=== PATIENT | male | born 1930 | race Caucasian/White ===

== ENCOUNTER 2018-01-21 18:58 | Inpatient (IN) | payer MEDICARE, MEDICAID, OTHER ==
[2018-01-21] MEDS: ONDANSETRON 4 MG INJ IV (19:37)
[2018-01-21] MEDS: SOD CHLORIDE 0.9% 1,000 ML IV (19:37)
[2018-01-21 19:43] LABS: ADD MAN DIFF? NO
[2018-01-21 19:45] LABS: BASOPHILS % 0.4 % (0.0-2.0); EOSINOPHILS # 0.1 10^3/ul (0.0-0.5); EOSINOPHILS % 0.8 % (0.0-7.0); HEMATOCRIT 45.5 % (42.0-52.0); HEMOGLOBIN 15.6 g/dl (14.0-18.0); LYMPHOCYTES # 2.6 10^3/ul (0.8-2.9); LYMPHOCYTES % 35.8 % (15.0-51.0); MEAN CORPUSCULAR HEMOGLOBIN 32.6 pg (29.0-33.0); MEAN CORPUSCULAR HGB CONC 34.3 g/dl (32.0-37.0); MEAN CORPUSCULAR VOLUME 95.2 fl (82.0-101.0); MEAN PLATELET VOLUME 9.8 fl (7.4-10.4); MONOCYTE # 0.7 10^3/ul (0.3-0.9); MONOCYTES % 9.6 % (0.0-11.0); NEUTROPHIL # 3.8 10^3/ul (1.6-7.5); PLATELET COUNT 161 10^3/UL (140-415); RED BLOOD COUNT 4.78 10^6/ul (4.70-6.10); RED CELL DISTRIBUTION WIDTH 14.4 % (11.5-14.5)
[2018-01-21 19:45] LABS: WHITE BLOOD COUNT 7.2 10^3/ul (4.8-10.8)
[2018-01-21 20:08] LABS: ALANINE AMINOTRANSFERASE 32 IU/L (13-69); ALBUMIN 4.1 g/dl (3.3-4.9); ALBUMIN/GLOBULIN RATIO 1.13; ALKALINE PHOSPHATASE 93 IU/L (42-121); ANION GAP 21 (8-16); ASPARTATE AMINO TRANSFERASE 27 IU/L (15-46); BILIRUBIN,INDIRECT 0.7 mg/dl (0-1.1); BILIRUBIN,TOTAL 0.7 mg/dl (0.2-1.3); BLOOD UREA NITROGEN 22 mg/dl (7-20); CALCIUM 9.1 mg/dl (8.4-10.2); CARBON DIOXIDE 28 mmol/L (21-31); CHLORIDE 96 mmol/L (97-110); CREATININE 1.39 mg/dl (0.61-1.24); GLUCOSE 88 mg/dl (70-220); LIPASE 163 U/L (23-300); SODIUM 142 mmol/L (135-144); TOTAL PROTEIN 7.7 g/dl (6.1-8.1)
[2018-01-21 20:14] LABS: POTASSIUM 2.8 mmol/L (3.5-5.1)
[2018-01-21 20:17] LABS: INR 1.09; PROTIME 14.3 Sec (11.9-14.9); PT RATIO 1.1
[2018-01-21 20:20] LABS: TROPONIN-I 0.087 ng/ml (0.00-0.12)
[2018-01-21 20:25] LABS: FREE T3 2.28 pg/ml (2.77-5.27)
[2018-01-21 20:28] LABS: ADD UMIC YES; UR ASCORBIC ACID NEGATIVE (NEGATIVE); UR BILIRUBIN (Dip) NEGATIVE (NEGATIVE); UR BLOOD (Dip) NEGATIVE (NEGATIVE); UR CLARITY SLIGHTLY CLOUDY (CLEAR); UR COLOR AMBER (YELLOW); UR GLUCOSE (Dip) NEGATIVE (NEGATIVE); UR KETONES (Dip) NEGATIVE (NEGATIVE); UR LEUKOCYTE ESTERASE (Dip) NEGATIVE Leu/ul (NEGATIVE); UR NITRITE (Dip) NEGATIVE (NEGATIVE); UR RBC 0 /HPF (0-5); UR SPECIFIC GRAVITY (Dip) 1.023 (1.003-1.030); UR TOTAL PROTEIN (Dip) 1+ mg/dl (NEGATIVE); UR UROBILINOGEN (Dip) 2+ mg/dL (NEGATIVE); UR WBC 1 /HPF (0-5)
[2018-01-21] MEDS: MAGNESIUM SULFATE 2 GM/50 ML 50 ML IVPB (20:48)
[2018-01-21 21:33] LABS: CREATINE KINASE 64 IU/L (23-200)
[2018-01-21] MEDS ORDERED: LORAZEPAM 2 MG INJ (21:53)
[2018-01-21] MEDS ORDERED: ONDANSETRON 4 MG INJ IV (22:00)
[2018-01-21] MEDS ORDERED: DOCUSATE SODIUM 100 MG CAP PO (22:00)
[2018-01-21] MEDS ORDERED: ACETAMINOPHEN 325 MG TAB PO (22:00)
[2018-01-21] MEDS ORDERED: BISACODYL (EC) 5 MG TAB PO (22:00)
[2018-01-21] MEDS ORDERED: NACL 0.9% 3 ML SYG IV (22:00)
[2018-01-21] MEDS: POTASSIUM PHOSPHATE 60 MEQ in SOD CHLORIDE 0.9% 250 ML IVPB (22:11)
[2018-01-21] MEDS: POTASSIUM CHLORIDE (SR) 20 MEQ TAB PO (22:31)
[2018-01-21] MEDS: LORAZEPAM 2 MG INJ IV (22:31)
[2018-01-22] MEDS: POTASSIUM CHLORIDE 50 ML IVPB ×8 (00:10→23:10)
[2018-01-22] MEDS: SOD CHLORIDE 0.9% 1,000 ML IV (00:43)
[2018-01-22 01:07] LABS: ANION GAP 16 (8-16); BLOOD UREA NITROGEN 19 mg/dl (7-20); CALCIUM 7.7 mg/dl (8.4-10.2); CARBON DIOXIDE 24 mmol/L (21-31); CHLORIDE 105 mmol/L (97-110); CREATININE 1.13 mg/dl (0.61-1.24); GLUCOSE 81 mg/dl (70-220); SODIUM 142 mmol/L (135-144)
[2018-01-22 01:18] LABS: MAGNESIUM 2.3 mg/dl (1.7-2.5)
[2018-01-22 06:33] LABS: ADD MAN DIFF? NO
[2018-01-22 06:43] LABS: BASOPHILS % 0.4 % (0.0-2.0); EOSINOPHILS # 0.1 10^3/ul (0.0-0.5); HEMATOCRIT 40.2 % (42.0-52.0); HEMOGLOBIN 13.3 g/dl (14.0-18.0); LYMPHOCYTES # 2.1 10^3/ul (0.8-2.9); LYMPHOCYTES % 29.4 % (15.0-51.0); MEAN CORPUSCULAR HEMOGLOBIN 32.1 pg (29.0-33.0); MEAN CORPUSCULAR HGB CONC 33.1 g/dl (32.0-37.0); MEAN CORPUSCULAR VOLUME 97.1 fl (82.0-101.0); MEAN PLATELET VOLUME 9.9 fl (7.4-10.4); MONOCYTE # 0.6 10^3/ul (0.3-0.9); MONOCYTES % 8.4 % (0.0-11.0); NEUTROPHIL # 4.3 10^3/ul (1.6-7.5); NEUTROPHILS % 60.5 % (39.0-77.0); PLATELET COUNT 141 10^3/UL (140-415); RED BLOOD COUNT 4.14 10^6/ul (4.70-6.10); RED CELL DISTRIBUTION WIDTH 14.4 % (11.5-14.5)
[2018-01-22 06:55] LABS: HEMOGLOBIN A1C 5.3 % (0-5.9)
[2018-01-22] MEDS: LEVOTHYROXINE 75 MCG TAB PO (07:00)
[2018-01-22 07:04] LABS: ALANINE AMINOTRANSFERASE 36 IU/L (13-69); ALBUMIN 3.4 g/dl (3.3-4.9); ALBUMIN/GLOBULIN RATIO 1.09; ALKALINE PHOSPHATASE 81 IU/L (42-121); ANION GAP 19 (8-16); ASPARTATE AMINO TRANSFERASE 22 IU/L (15-46); BILIRUBIN,INDIRECT 0.4 mg/dl (0-1.1); BILIRUBIN,TOTAL 0.4 mg/dl (0.2-1.3); BLOOD UREA NITROGEN 17 mg/dl (7-20); CALCIUM 7.7 mg/dl (8.4-10.2); CARBON DIOXIDE 24 mmol/L (21-31); CHLORIDE 105 mmol/L (97-110); CREATININE 1.05 mg/dl (0.61-1.24); GLUCOSE 71 mg/dl (70-220); MAGNESIUM 1.9 mg/dl (1.7-2.5); SODIUM 145 mmol/L (135-144); TOTAL PROTEIN 6.5 g/dl (6.1-8.1)
[2018-01-22 07:08] LABS: POTASSIUM 2.9 mmol/L (3.5-5.1)
[2018-01-22] MEDS: POTASSIUM CHLORIDE (SR) 20 MEQ TAB PO (07:27)
[2018-01-22] MEDS: MAGNESIUM SULFATE 1 GM/D5W 100 ML IVPB (08:27)
[2018-01-22] MEDS ORDERED: NON-FORMULARY/PATIENT OWN MED (Memantine HCl/Donepezil HCl (Namzaric 28 mg-10 mg Capsule) PO (09:00)
[2018-01-22] MEDS: ESCITALOPRAM 10 MG TAB PO (09:00)
[2018-01-22] MEDS: POTASSIUM CHLORIDE 30 MEQ in DEXTROSE 5% 1,000 ML IV (09:46)
[2018-01-22] MEDS: BRIMONIDINE 0.2% 5 ML BTL BOTH EYES ×2 (11:16→20:34)
[2018-01-22] MEDS: DORZOLAMIDE/TIMOLOL 10 ML OPH BOTH EYES ×2 (11:16→20:34)
[2018-01-22] MEDS: MEMANTINE 10 MG TAB PO (12:00)
[2018-01-22] MEDS: DONEPEZIL 10 MG TAB PO (12:00)
[2018-01-22 16:42] LABS: ANION GAP 16 (8-16); BLOOD UREA NITROGEN 12 mg/dl (7-20); CALCIUM 7.5 mg/dl (8.4-10.2); CARBON DIOXIDE 23 mmol/L (21-31); CHLORIDE 99 mmol/L (97-110); CREATININE 0.92 mg/dl (0.61-1.24); GLUCOSE 72 mg/dl (70-220); SODIUM 135 mmol/L (135-144)
[2018-01-22 16:43] LABS: MAGNESIUM 1.8 mg/dl (1.7-2.5)
[2018-01-22 16:46] LABS: POTASSIUM 2.8 mmol/L (3.5-5.1)
[2018-01-22] MEDS: DEXTROSE 5% 1,000 ML IV (16:46)
[2018-01-22] MEDS: MAGNESIUM SULFATE 2 GM/50 ML 50 ML IVPB (17:29)
[2018-01-22] MEDS: CALCIUM GLUCONATE 10% 1 GM in DEXTROSE 5% 100 ML IVPB (17:48)
[2018-01-22] MEDS: TAMSULOSIN (SR) 0.4 MG CAP PO (20:39)
[2018-01-22] MEDS: ATORVASTATIN 20 MG TAB PO (20:39)
[2018-01-23 01:40] LABS: PARTIAL THROMBOPLASTIN TIME 34.3 Sec (25.0-35.0)
[2018-01-23] MEDS: DEXTROSE 5% 1,000 ML IV (03:30)
[2018-01-23] MEDS: SOD CHLORIDE 0.45% 1,000 ML IV (06:04)
[2018-01-23] MEDS: LEVOTHYROXINE 75 MCG TAB PO (06:05)
[2018-01-23 08:00] LABS: PARTIAL THROMBOPLASTIN TIME 33.6 Sec (25.0-35.0)
[2018-01-23 08:04] LABS: ANION GAP 12 (8-16); BLOOD UREA NITROGEN 7 mg/dl (7-20); CALCIUM 7.8 mg/dl (8.4-10.2); CARBON DIOXIDE 26 mmol/L (21-31); CHLORIDE 100 mmol/L (97-110); CREATININE 0.88 mg/dl (0.61-1.24); GLUCOSE 83 mg/dl (70-220); MAGNESIUM 1.9 mg/dl (1.7-2.5); PHOSPHORUS 1.5 mg/dl (2.5-4.9); POTASSIUM 3.4 mmol/L (3.5-5.1); SODIUM 135 mmol/L (135-144)
[2018-01-23] MEDS: ALLOPURINOL 300 MG TAB PO ×2 (09:00→11:39)
[2018-01-23] MEDS: ESCITALOPRAM 10 MG TAB PO ×2 (09:00→11:39)
[2018-01-23] MEDS: DONEPEZIL 10 MG TAB PO ×2 (09:00→11:37)
[2018-01-23] MEDS: FINASTERIDE 5 MG TAB PO ×2 (09:00→11:38)
[2018-01-23] MEDS: MEMANTINE 10 MG TAB PO ×2 (09:00→11:35)
[2018-01-23] MEDS: DIPYRIDAMOLE/ASPIRIN (SR) CAP PO ×2 (09:00→11:38)
[2018-01-23] MEDS: DORZOLAMIDE/TIMOLOL 10 ML OPH BOTH EYES ×2 (09:48→20:50)
[2018-01-23] MEDS: BRIMONIDINE 0.2% 5 ML BTL BOTH EYES ×2 (09:48→20:50)
[2018-01-23] MEDS: MAGNESIUM SULFATE 4 GM/100 ML 100 ML IVPB (11:32)
[2018-01-23] MEDS: CALCIUM GLUCONATE 10% 1 GM in DEXTROSE 5% 100 ML IVPB (11:32)
[2018-01-23] MEDS: POTASSIUM CHLORIDE 100 ML IVPB ×2 (13:31→15:15)
[2018-01-23 17:33] LABS: ANION GAP 12 (8-16); BLOOD UREA NITROGEN 7 mg/dl (7-20); CARBON DIOXIDE 24 mmol/L (21-31); CHLORIDE 100 mmol/L (97-110); CREATININE 0.78 mg/dl (0.61-1.24); GLUCOSE 89 mg/dl (70-220); POTASSIUM 4.2 mmol/L (3.5-5.1); SODIUM 132 mmol/L (135-144)
[2018-01-23 18:12] LABS: PSA, FREE 1.4 ng/mL
[2018-01-23] MEDS: ATORVASTATIN 20 MG TAB PO (20:48)
[2018-01-23] MEDS: TAMSULOSIN (SR) 0.4 MG CAP PO (20:49)
[2018-01-23 21:22] LABS: MAGNESIUM 2.6 mg/dl (1.7-2.5)
[2018-01-24] MEDS: LORAZEPAM 2 MG INJ IV (00:26)
[2018-01-24] MEDS: SODIUM PHOSPHATE 30 MMOL in SOD CHLORIDE 0.9% 250 ML IVPB (00:44)
[2018-01-24] MEDS: LEVOTHYROXINE 75 MCG TAB PO (06:39)
[2018-01-24] MEDS: DONEPEZIL 10 MG TAB PO (08:15)
[2018-01-24] MEDS: ESCITALOPRAM 10 MG TAB PO (08:15)
[2018-01-24] MEDS: DORZOLAMIDE/TIMOLOL 10 ML OPH BOTH EYES ×2 (08:15→22:00)
[2018-01-24] MEDS: DIPYRIDAMOLE/ASPIRIN (SR) CAP PO (08:15)
[2018-01-24] MEDS: BRIMONIDINE 0.2% 5 ML BTL BOTH EYES ×2 (08:15→21:00)
[2018-01-24] MEDS: MEMANTINE 10 MG TAB PO (08:15)
[2018-01-24] MEDS: FINASTERIDE 5 MG TAB PO (08:15)
[2018-01-24] MEDS ORDERED: INFLUENZA VIRUS VACCINE 0.5 ML (DISPENSING) IM* (09:00)
[2018-01-24 09:05] LABS: ANION GAP 17 (8-16); BLOOD UREA NITROGEN 7 mg/dl (7-20); CALCIUM 7.8 mg/dl (8.4-10.2); CARBON DIOXIDE 22 mmol/L (21-31); CHLORIDE 101 mmol/L (97-110); GLUCOSE 78 mg/dl (70-220); MAGNESIUM 1.9 mg/dl (1.7-2.5); PHOSPHORUS 3.9 mg/dl (2.5-4.9); POTASSIUM 3.5 mmol/L (3.5-5.1); SODIUM 136 mmol/L (135-144)
[2018-01-24] MEDS: CALCIUM GLUCONATE 10% 1 GM in DEXTROSE 5% 100 ML IVPB (15:07)
[2018-01-24] MEDS: TAMSULOSIN (SR) 0.4 MG CAP PO (21:23)
[2018-01-24] MEDS: ATORVASTATIN 20 MG TAB PO (21:23)
[2018-01-25] MEDS: LEVOTHYROXINE 75 MCG TAB PO (06:56)
[2018-01-25 06:57] LABS: ANION GAP 14 (8-16); BLOOD UREA NITROGEN 7 mg/dl (7-20); CARBON DIOXIDE 27 mmol/L (21-31); CHLORIDE 100 mmol/L (97-110); CREATININE 0.95 mg/dl (0.61-1.24); GLUCOSE 81 mg/dl (70-220); MAGNESIUM 1.8 mg/dl (1.7-2.5); PHOSPHORUS 3.3 mg/dl (2.5-4.9); POTASSIUM 3.6 mmol/L (3.5-5.1); SODIUM 137 mmol/L (135-144)
[2018-01-25 09:01] LABS: ALDOSTERONE <1 ng/dL
[2018-01-25] MEDS: DIPYRIDAMOLE/ASPIRIN (SR) CAP PO (09:36)
[2018-01-25] MEDS: ALLOPURINOL 300 MG TAB PO (09:37)
[2018-01-25] MEDS: DONEPEZIL 10 MG TAB PO (09:37)
[2018-01-25] MEDS: FINASTERIDE 5 MG TAB PO (09:37)
[2018-01-25] MEDS: MEMANTINE 10 MG TAB PO (09:37)
[2018-01-25] MEDS: BRIMONIDINE 0.2% 5 ML BTL BOTH EYES ×2 (09:37→21:17)
[2018-01-25] MEDS: DORZOLAMIDE/TIMOLOL 10 ML OPH BOTH EYES ×2 (09:37→21:17)
[2018-01-25] MEDS: ESCITALOPRAM 10 MG TAB PO (09:37)
[2018-01-25] MEDS: CALCIUM GLUCONATE 10% 1 GM in DEXTROSE 5% 100 ML IVPB (16:33)
[2018-01-25] MEDS: TAMSULOSIN (SR) 0.4 MG CAP PO (21:17)
[2018-01-25] MEDS: ATORVASTATIN 20 MG TAB PO (21:17)
[2018-01-25 21:32] LABS: RENIN, PLASMA 0.37 ng/mL/h (0.25-5.82)
[2018-01-26 06:00] LABS: ADD MAN DIFF? NO
[2018-01-26 06:05] LABS: BASOPHILS % 0.3 % (0.0-2.0); EOSINOPHILS # 0.2 10^3/ul (0.0-0.5); EOSINOPHILS % 3.1 % (0.0-7.0); HEMATOCRIT 34.1 % (42.0-52.0); LYMPHOCYTES # 2.7 10^3/ul (0.8-2.9); LYMPHOCYTES % 46.6 % (15.0-51.0); MEAN CORPUSCULAR HEMOGLOBIN 32.3 pg (29.0-33.0); MEAN CORPUSCULAR HGB CONC 35.2 g/dl (32.0-37.0); MEAN CORPUSCULAR VOLUME 91.9 fl (82.0-101.0); MEAN PLATELET VOLUME 9.1 fl (7.4-10.4); MONOCYTE # 0.5 10^3/ul (0.3-0.9); MONOCYTES % 8.3 % (0.0-11.0); NEUTROPHIL # 2.4 10^3/ul (1.6-7.5); NEUTROPHILS % 41.2 % (39.0-77.0); PLATELET COUNT 129 10^3/UL (140-415); RED BLOOD COUNT 3.71 10^6/ul (4.70-6.10); RED CELL DISTRIBUTION WIDTH 13.7 % (11.5-14.5)
[2018-01-26 06:05] LABS: WHITE BLOOD COUNT 5.8 10^3/ul (4.8-10.8)
[2018-01-26] MEDS: LEVOTHYROXINE 75 MCG TAB PO (06:09)
[2018-01-26 06:43] LABS: ANION GAP 14 (8-16); BLOOD UREA NITROGEN 10 mg/dl (7-20); CALCIUM 8.3 mg/dl (8.4-10.2); CARBON DIOXIDE 25 mmol/L (21-31); CHLORIDE 100 mmol/L (97-110); GLUCOSE 76 mg/dl (70-220); MAGNESIUM 1.7 mg/dl (1.7-2.5); PHOSPHORUS 2.5 mg/dl (2.5-4.9); POTASSIUM 3.2 mmol/L (3.5-5.1); SODIUM 136 mmol/L (135-144)
[2018-01-26] MEDS: ALLOPURINOL 300 MG TAB PO (08:25)
[2018-01-26] MEDS: MEMANTINE 10 MG TAB PO (08:25)
[2018-01-26] MEDS: DIPYRIDAMOLE/ASPIRIN (SR) CAP PO (08:26)
[2018-01-26] MEDS: FINASTERIDE 5 MG TAB PO (08:26)
[2018-01-26] MEDS: ESCITALOPRAM 10 MG TAB PO (08:26)
[2018-01-26] MEDS: DONEPEZIL 10 MG TAB PO (08:26)
[2018-01-26] MEDS: DORZOLAMIDE/TIMOLOL 10 ML OPH BOTH EYES ×2 (08:27→20:50)
[2018-01-26] MEDS: BRIMONIDINE 0.2% 5 ML BTL BOTH EYES ×2 (08:27→20:49)
[2018-01-26 11:12] LABS: POTASSIUM,URINE RANDOM 9.7 mmol/L (25-125)
[2018-01-26 11:12] LABS: CREATININE,URINE RANDOM 62.55 mg/dl (20-370)
[2018-01-26] MEDS ORDERED: POTASSIUM CHLORIDE (SR) 20 MEQ TAB PO (11:50)
[2018-01-26] MEDS: POTASSIUM CHLORIDE 20 MEQ POWDER FOR ORAL SOLN PO (14:08)
[2018-01-26] MEDS: TAMSULOSIN (SR) 0.4 MG CAP PO (20:50)
[2018-01-26] MEDS: ATORVASTATIN 20 MG TAB PO (20:50)
[2018-01-27] MEDS: LEVOTHYROXINE 75 MCG TAB PO (06:34)
[2018-01-27] MEDS: DORZOLAMIDE/TIMOLOL 10 ML OPH BOTH EYES (08:45)
[2018-01-27] MEDS: BRIMONIDINE 0.2% 5 ML BTL BOTH EYES (08:45)
[2018-01-27] MEDS: DIPYRIDAMOLE/ASPIRIN (SR) CAP PO (08:46)
[2018-01-27] MEDS: MEMANTINE 10 MG TAB PO (08:46)
[2018-01-27] MEDS: ESCITALOPRAM 10 MG TAB PO (08:46)
[2018-01-27] MEDS: DONEPEZIL 10 MG TAB PO (08:47)
[2018-01-27] MEDS: FINASTERIDE 5 MG TAB PO (08:47)
[2018-01-27] MEDS: ALLOPURINOL 300 MG TAB PO (08:47)
[2018-01-27 17:21] LABS: PTH CALCIUM 7.8 mg/dL (8.6-10.3)
[2018-01-28 08:47] LABS: PTH INTACT 161 pg/mL (14-64)
== END 2018-01-27 15:45 | DRG 641 ==
LOC: TEL 01-22 21:35 → E/R 18:58 → TEL 01-22 20:44 → MS2 01-24 12:33 → TEL 20:44
PROVIDERS: Family Medicine
DX: E86.0 Dehydration (principal); G30.9 Alzheimer's disease, unspecified; R63.0 Anorexia; E83.51 Hypocalcemia; F02.80 Dementia in other diseases classified elsewhere, unspecified severity, without behavioral disturbance, psychotic disturbance, mood disturbance, and anxiety; I45.81 Long QT syndrome; E87.6 Hypokalemia; E03.9 Hypothyroidism, unspecified; F32.9 Major depressive disorder, single episode, unspecified; H40.9 Unspecified glaucoma; M10.9 Gout, unspecified; N40.0 Benign prostatic hyperplasia without lower urinary tract symptoms; R26.9 Unspecified abnormalities of gait and mobility; R62.7 Adult failure to thrive; Z68.22 Body mass index [BMI] 22.0-22.9, adult; Z91.81 History of falling; Z79.82 Long term (current) use of aspirin
CPT/HCPCS: 36415; 70450; 71045; 73030-RT; 80048; 80053; 81001; 81003; 82088; 82533; 82550; 82962; 83036; 83690; 83735; 83970; 84100; 84133; 84153; 84154; 84155; 84244; 84439; 84443; 84481; 84484; 85025; 85610; 85730; 87086; 92526; 92610; 93005; 96374; 96375; 97110; 97116; 97530; 99291-25

== ENCOUNTER 2019-05-02 01:43 | Emergency (ER) | payer MEDICARE, OTHER, MEDICAID ==
[2019-05-02] MEDS: DIPHTH/TET/ACEL PERTUSS (ADULT) 0.5 ML VIAL IM* (02:32)
== END 2019-05-02 05:17 | disposition home or self-care (01) ==
LOC: E/R 01:43
DX: S50.311A Abrasion of right elbow, initial encounter (principal); G30.9 Alzheimer's disease, unspecified; W18.39XA Other fall on same level, initial encounter; Y92.9 Unspecified place or not applicable; Z23 Encounter for immunization; Z79.82 Long term (current) use of aspirin
CPT/HCPCS: 70450; 90471; 90715; 99284-25